=== PATIENT | male | born 1955 | race Caucasian/White ===

== ENCOUNTER 2018-02-14 09:05 | Inpatient (IN) | payer OTHER ==
--- NOTE | 2018-02-14 09:42 | HP ---
CIWA Score Nausea/Vomitin-Int. Nausea w/Dry Heave Muscle Tremors: 4-Moderate,w/Arms Extend Anxiety: 4-Mod. Anxious/Guarded Agitation: 2 Paroxysmal Sweats: No Perspiration Orientation: 0-Oriented Tacttile Disturbances: 2-Mild Itch/Numbness/Burn Auditory Disturbances: 0-None Visual Disturbances: 0-None Headache: 2-Mild CIWA-Ar Total Score: 18 - Admission Criteria OASAS Guidelines: Admission for Medically Managed Detox: Requires at least one of the followin. CIWA greater than 12 2. Seizures within the past 24 hours 3. Delirium tremens within the past 24 hours 4. Hallucinations within the past 24 hours 5. Acute intervention needed for co occurring medical disorder 6. Acute intervention needed for co occurring psychiatric disorder 7. Severe withdrawal that cannot be handled at a lower level of care (continued vomiting, continued diarrhea, abnormal vital signs) requiring intravenous medication and/or fluids 8. Admission ROS S - HPI Allergies/Adverse Reactions: Allergies Allergy/AdvReac Type Severity Reaction Status Date / Time No Known Allergies Allergy Verified 02/14/18 09:35 History of Present Illness: patient here requesting detox from etoh use , reports heavy use x 1 year , 5-10 dronks/day vodka and beer , reports 3 beers/day & 3 beers/ day , symptoms as above if not drinking x 1 week, starts drinking at 8 a.m. in order to stop the tremors , reports confusion , + driving , denies drinking and driving . Denies seizures , blackouts, falls while intoxicated . First age of use : 16. This is his first admission to this facility. Went to [facility] yesterday , referred to this facility. Current HERBIE 0.044 latest use 3 a.m. tobacco ; denies cannabis : occasional use PMHx : r hip djd , lumbar cx frx L1 3 mo ago , reports chronic pain PShx : R THR July 2017 Psych : depression , denies SI / HI Shx : lives w/ daughter, employed as a [employer] . Exam Limitations: Intoxication - Ebola screening Have you traveled outside of the country in the last 21 days: No Have you had contact with anyone from an Ebola affected area: No Do you have a fever: No - Review of Systems Constitutional: See HPI EENT: reports: Other Respiratory: reports: No Symptoms reported Cardiac: reports: No Symptoms Reported GI: reports: Diarrhea, Poor Appetite, Poor Fluid Intake : reports: No Symptoms Reported Musculoskeletal: reports: Back Pain, Joint Pain Integumentary: reports: No Symptoms Reported Neuro: reports: Headache Endocrine: reports: No Symptoms Reported Psychiatric: reports: Orientated x3, Agitated, Anxious Patient History - Smoking Cessation Smoking history: Never smoked - Substances Abused ETOH Frequency: Daily Amount used: 10 drinks vodka and beer Age of first use: 16 Date of Last Use: 02/13/18 Admission Physical Exam [facility] - Physical General Appearance: Yes: Severe Distress, Alcohol on Breath, Tremorous, Anxious HEENTM: Yes: EOMI, Hearing grossly Normal, Normocephalic, Normal Voice Respiratory: Yes: Chest Non-Tender, Lungs Clear, Normal Breath Sounds Neck: Yes: No masses,lesions,Nodules, Trachea in good position Cardiology: Yes: Regular Rhythm, Regular Rate, S1, S2, Tachycardia Abdominal: Yes: Normal Bowel Sounds, Non Tender, Soft Genitourinary: Yes: Within Normal Limits Back: Yes: Muscle Spasm, Vertebral Tenderness Musculoskeletal: Yes: full range of Motion, Gait Steady, Back pain, Joint Stiffness (r hip s/p thr) Extremities: Yes: Normal Capillary Refill, Normal Inspection Neurological: Yes: Fully Oriented, Alert, Motor Strength 5/5 Integumentary: Yes: Normal Color, Dry, Warm - Diagnostic (1) Alcohol dependence Current Visit: Yes Status: Acute Qualifiers: Substance use status: in withdrawal
[2018-02-14] MEDS ORDERED: P-EPHED 60MG/TRIPROLIDI 2.5MG TABLET PO PRN (09:49)
[2018-02-14] MEDS ORDERED: ACETAMINOPHEN 325 MG TABLET (FP) PO PRN (09:49)
[2018-02-14] MEDS ORDERED: MAGNESIUM CITRATE 300 ML BOTTLE PO PRN (09:49)
[2018-02-14] MEDS ORDERED: MAGNESIUM HYDROX 2400MG/30ML ORAL SUSPENSION 30 ML CUP PO PRN (09:49)
[2018-02-14] MEDS ORDERED: LOPERAMIDE HCL 2 MG CAPSULE PO PRN (09:49)
[2018-02-14] MEDS ORDERED: MENTHOL/PHENOL 1 EACH UD MM PRN (09:49)
[2018-02-14] MEDS ORDERED: chlordiazePOXIDE HCL 25 MG CAPSULE PO PRN (09:49)
[2018-02-14] MEDS ORDERED: MAG HYDROX/AL HYDROX/SIMETH 30 ML UNIT-DOSE CUP PO PRN (09:49)
[2018-02-14] MEDS ORDERED: guaiFENesin/D-METHORPHAN HB 10 ML UNIT-DOSE CUPS PO PRN (09:49)
[2018-02-14] MEDS: chlordiazePOXIDE HCL 25 MG CAPSULE PO SCH ×3 (12:32→22:18)
[2018-02-14] MEDS: PRENATAL VITAMINS W/ FOLIC ACID TABLET (FP) PO SCH (12:32)
[2018-02-14] MEDS ORDERED: ONDANSETRON *ODT* 4 MG TABLET SL PRN (13:01)
[2018-02-14] MEDS ORDERED: MELATONIN 5 MG TABLETS PO PRN (22:00)
[2018-02-14] MEDS: THIAMINE HCL 100 MG TABLET (FP) PO SCH (22:18)
[2018-02-15] MEDS: chlordiazePOXIDE HCL 25 MG CAPSULE PO SCH (06:34)
[2018-02-15] MEDS: chlordiazePOXIDE HCL 10 MG CAPSULE PO SCH ×2 (10:23→17:31)
[2018-02-15] MEDS: PRENATAL VITAMINS W/ FOLIC ACID TABLET (FP) PO SCH (10:23)
[2018-02-15 10:36] LABS: HEMATOCRIT 47.7 % (35.4-49); HEMOGLOBIN 16.1 GM/dL (11.7-16.9); MCHC 33.8 g/dl (32.0-35.9); PLATELET COUNT 170 K/MM3 (134-434)
[2018-02-15 10:41] LABS: MCH 31.5 pg (25.7-33.7); MEAN PLT VOLUME 8.8 fl (7.5-11.1); RBC 5.13 M/mm3 (4.00-5.60); RDW 13.6 % (11.9-15.9); WHITE BLOOD COUNT 10.1 K/mm3 (4.0-10.0)
[2018-02-15 10:58] LABS: ALBUMIN 4.1 g/dl (3.4-5.0); ALK PHOS 159 U/L (45-117); ANION GAP 9 MMOL/L (8-16); BILIRUBIN,TOTAL 1.2 mg/dL (0.2-1); BLOOD UREA NITROGEN 15 mg/dL (7-18); CALCIUM 8.6 mg/dL (8.5-10.1); CHLORIDE 97 mmol/L (98-107); CO2 28 mmol/L (21-32); CREATININE 0.7 mg/dL (0.55-1.3); GLUCOSE,RANDOM 97 mg/dL (74-106); POTASSIUM 3.7 mmol/L (3.5-5.1); SGOT/AST 66 U/L (15-37); SGPT/ALT 62 U/L (13-61); SODIUM 133 mmol/L (136-145); TOT PROT 8.2 g/dl (6.4-8.2)
--- NOTE | 2018-02-15 13:26 | PN ---
[facility] CIWA - CIWA Score Nausea/Vomitin-Mild Nausea/No Vomiting Muscle Tremors: 4-Moderate,w/Arms Extend Anxiety: 2 Agitation: 2 Paroxysmal Sweats: 1-Minimal Palms Moist Orientation: 0-Oriented Tacttile Disturbances: 0-None Auditory Disturbances: 0-None Visual Disturbances: 0-None Headache: 0-None Present CIWA-Ar Total Score: 10 [facility] Progress Note (SOAP) Subjective: pt still feels like he is inwithdrawal. On librium detox protocol ay #2 O: Vital Signs - 24 hr 02/14/18 02/14/18 02/14/18 14:39 18:42 22:20 Temperature 98.2 F 99.3 F 98.1 F Pulse Rate 95 H 93 H 74 Respiratory 20 18 18 Rate Blood Pressure 160/98 147/91 139/85 02/15/18 02/15/18 02/15/18 00:30 03:30 07:00 Temperature Pulse Rate 72 Respiratory 18 18 18 Rate Blood Pressure 132/70 02/15/18 09:50 Temperature 97.7 F Pulse Rate 73 Respiratory 18 Rate Blood Pressure 121/69 Laboratory Tests 02/14/18 02/15/18 02/15/18 10:45 05:30 05:30 WBC 10.1 H RBC 5.13 Hgb 16.1 Hct 47.7 MCV 93.0 MCH 31.5 MCHC 33.8 RDW 13.6 Plt Count 170 MPV 8.8 Sodium 133 L Potassium 3.7 Chloride 97 L Carbon Dioxide 28 Anion Gap 9 BUN 15 Creatinine 0.7 Creat Clearance w eGFR > 60 Random Glucose 97 Calcium 8.6 Total Bilirubin 1.2 H AST 66 H ALT 62 H Alkaline Phosphatase 159 H Total Protein 8.2 Albumin 4.1 HIV 1&2 Antibody Screen Negative HIV P24 Antigen Negative a/p: AUD- continue detox protocol- mildly increased liver enzymes, add clonidine and vistaril for withdrawal Sx
[2018-02-15] MEDS: IBUPROFEN 400 MG TABLET (FP) PO PRN (19:22)
[2018-02-16] MEDS: THIAMINE HCL 100 MG TABLET (FP) PO SCH ×2 (00:35→22:05)
[2018-02-16] MEDS: chlordiazePOXIDE HCL 10 MG CAPSULE PO SCH ×2 (00:36→06:26)
[2018-02-16] MEDS: hydrOXYzine PAMOATE 50 MG CAPSULE (FP) PO PRN ×2 (06:28→22:05)
--- NOTE | 2018-02-16 10:42 | PN ---
S CIWA - CIWA Score Nausea/Vomitin-No Nausea/No Vomiting Muscle Tremors: 1-None Visible, but [place] Anxiety: 0-No Anxiety, at Ease Agitation: 0-Normal Activity Paroxysmal Sweats: 1-Minimal Palms Moist Orientation: 0-Oriented Tacttile Disturbances: 0-None Auditory Disturbances: 0-None Visual Disturbances: 0-None Headache: 1-Very Mild CIWA-Ar Total Score: 3 [facility] Progress Note (SOAP) Subjective: feeling better felt tremor less sweat no gi distress patient requests to be discharged to aftercare tomorrow 02/17/18 stated that he is ready for aftercare Objective: 02/16/18 10:41 Vital Signs Temperature 97.7 F 02/16/18 04:00 Pulse Rate 64 02/16/18 04:00 Respiratory Rate 20 02/16/18 04:00 Blood Pressure 102/67 02/16/18 04:00 O2 Sat by Pulse Oximetry (%) Laboratory Last Values WBC 10.1 K/mm3 (4.0-10.0) H 02/15/18 05:30 RBC 5.13 M/mm3 (4.00-5.60) 02/15/18 05:30 Hgb 16.1 GM/dL (11.7-16.9) 02/15/18 05:30 Hct 47.7 % (35.4-49) 02/15/18 05:30 MCV 93.0 fl (80-96) 02/15/18 05:30 MCH 31.5 pg (25.7-33.7) 02/15/18 05:30 MCHC 33.8 g/dl (32.0-35.9) 02/15/18 05:30 RDW 13.6 % (11.9-15.9) 02/15/18 05:30 Plt Count 170 K/MM3 (134-434) 02/15/18 05:30 MPV 8.8 fl (7.5-11.1) 02/15/18 05:30 Sodium 133 mmol/L (136-145) L 02/15/18 05:30 Potassium 3.7 mmol/L (3.5-5.1) 02/15/18 05:30 Chloride 97 mmol/L (98-107) L 02/15/18 05:30 Carbon Dioxide 28 mmol/L (21-32) 02/15/18 05:30 Anion Gap 9 MMOL/L (8-16) 02/15/18 05:30 BUN 15 mg/dL (7-18) 02/15/18 05:30 Creatinine 0.7 mg/dL (0.55-1.3) 02/15/18 05:30 Creat Clearance w eGFR > 60 (>60) 02/15/18 05:30 Random Glucose 97 mg/dL (74-106) 02/15/18 05:30 Calcium 8.6 mg/dL (8.5-10.1) 02/15/18 05:30 Total Bilirubin 1.2 mg/dL (0.2-1) H 02/15/18 05:30 AST 66 U/L (15-37) H 02/15/18 05:30 ALT 62 U/L (13-61) H 02/15/18 05:30 Alkaline Phosphatase 159 U/L (45-117) H 02/15/18 05:30 Total Protein 8.2 g/dl (6.4-8.2) 02/15/18 05:30 Albumin 4.1 g/dl (3.4-5.0) 02/15/18 05:30 HIV 1&2 Antibody Screen Negative 02/14/18 10:45 HIV P24 Antigen Negative 02/14/18 10:45 lab noted Assessment: 02/16/18 10:42 mild alcohol withdrawal sx Plan: medically supervised detox
[2018-02-16] MEDS: chlordiazePOXIDE HCL 25 MG CAPSULE PO SCH ×3 (10:52→22:05)
[2018-02-16] MEDS: PRENATAL VITAMINS W/ FOLIC ACID TABLET (FP) PO SCH (10:52)
[2018-02-16] MEDS: IBUPROFEN 400 MG TABLET (FP) PO PRN (16:33)
[2018-02-16] MEDS: cloNIDine HCL 0.1 MG TABLET PO PRN ×2 (16:33→22:05)
[2018-02-17] MEDS: chlordiazePOXIDE HCL 25 MG CAPSULE PO SCH (06:06)
[2018-02-17] MEDS: hydrOXYzine PAMOATE 50 MG CAPSULE (FP) PO PRN (07:45)
[2018-02-17 09:05] VITALS: BP 117/57; PULSE 71; TEMP 96.8
--- NOTE | 2018-02-17 09:23 | DS ---
[facility] Detox Discharge Summary Admission Date: 02/14/18 Discharge Date: 02/17/18 - History Present History: Alcohol Dependence - Physical Exam Results Vital Signs: Vital Signs Temperature 96.8 F L 02/17/18 09:04 Pulse Rate 71 02/17/18 09:04 Respiratory Rate 18 02/17/18 09:04 Blood Pressure 117/57 L 02/17/18 09:04 O2 Sat by Pulse Oximetry (%) - Treatment Hospital Course: Detox Protocol Followed, Detoxed Safely, Responded well, Discharged Condition Good, Rehab Referral Accepted - Medication Discharge Medications: Ambulatory Orders NK [No Known Home Medication] 02/14/18 - AMA Did Patient Leave Against Medical Advice: No (going home)
[2018-02-17] MEDS ORDERED: chlordiazePOXIDE HCL 10 MG CAPSULE PO SCH (11:00)
== END 2018-02-17 09:04 | disposition home or self-care (01) | DRG 775 ==
LOC: YASAS 09:05 → Y6N 11:19
PROC: HZ2ZZZZ Detoxification Services for Substance Abuse Treatment (ICD-10-PCS; principal; 2018-02-14)
DX: F10.230 Alcohol dependence with withdrawal, uncomplicated (principal)
CPT/HCPCS: 36415; 80053; 85027; 86593; 87389; J0735

== ENCOUNTER 2018-08-14 08:17 | Inpatient (IN) | payer OTHER ==
[2018-08-14 09:14] VITALS: BMI 24.3
--- NOTE | 2018-08-14 10:06 | HP ---
CIWA Score Nausea/Vomitin Muscle Tremors: 2 Anxiety: 2 Agitation: 2 Paroxysmal Sweats: 1-Minimal Palms Moist Orientation: 0-Oriented Tacttile Disturbances: 1-Very Mild Itch/Numbness Auditory Disturbances: 1-Very Mild Visual Disturbances: 0-None Headache: 2-Mild CIWA-Ar Total Score: 13 - Admission Criteria OASAS Guidelines: Admission for Medically Managed Detox: Requires at least one of the followin. CIWA greater than 12 2. Seizures within the past 24 hours 3. Delirium tremens within the past 24 hours 4. Hallucinations within the past 24 hours 5. Acute intervention needed for co occurring medical disorder 6. Acute intervention needed for co occurring psychiatric disorder 7. Severe withdrawal that cannot be handled at a lower level of care (continued vomiting, continued diarrhea, abnormal vital signs) requiring intravenous medication and/or fluids 8. Admission ROS S - HPI Chief Complaint: i need help to stop drinking alcohol Allergies/Adverse Reactions: Allergies Allergy/AdvReac Type Severity Reaction Status Date / Time No Known Allergies Allergy Verified 08/14/18 09:14 History of Present Illness: this 62 years old male with alcohol dependence,withdrawal symptom,seeking detox, multiple admissions in detox,last 02/14/18 to 02/17/18 but keep relapsing anxiety and depression syncope alcohol related history of right lulú replacement in 2018 fx of l1 post trauama in 03/22 plan of out patient program longest peroid of sobriety 2 years Exam Limitations: No Limitations - Ebola screening Have you traveled outside of the country in the last 21 days: No (N) Have you had contact with anyone from an Ebola affected area: No Do you have a fever: No - Review of Systems Constitutional: Loss of Appetite, Malaise, Night Sweats, Changes in sleep, Weakness EENT: reports: Nose Congestion Respiratory: reports: No Symptoms reported Cardiac: reports: No Symptoms Reported GI: reports: Diarrhea, Nausea, Poor Appetite, Abdominal cramping : reports: No Symptoms Reported Musculoskeletal: reports: Back Pain, Muscle Pain Integumentary: reports: Dryness, Other (s/p right hip replacement) Neuro: reports: Headache, Tremors Endocrine: reports: No Symptoms Reported Hematology: reports: No Symptoms Reported Psychiatric: reports: No Sypmtoms Reported, Judgement Intact, Mood/Affect Appropiate, Orientated x3, Anxious, Depressed Other Systems: Reviewed and Negative Patient History - Patient Medical History Hx Anemia: No Hx Asthma: No Hx Chronic Obstructive Pulmonary Disease (COPD): No Hx Cancer: No Hx Cardiac Disorders: No Hx Hypertension: No Hx Hypercholesterolemia: No Hx Pacemaker: No HX Cerebrovascular Accident: No Hx Seizures: No Hx Dementia: No Hx Diabetes: No Hx Gastrointestinal Disorders: No Hx Liver Disease: No Hx Genitourinary Disorders: No Hx Sexually Transmitted Disorders: No Hx Renal Disease (ESRD): No Hx Thyroid Disease: No Hx Human Immunodeficiency Virus (HIV): No (last 2017 negative) Hx Hepatitis C: No Hx Depression: Yes (anxiety) Hx Suicide Attempt: No Hx Bipolar Disorder: No Hx Schizophrenia: No Other Medical History: no suicidal,no homicidal,s/p right hip replacement,fx of l1 - Patient Surgical History Past Surgical History: Yes Hx Neurologic Surgery: No Hx Cataract Extraction: No Hx Cardiac Surgery: No Hx Lung Surgery: No Hx Breast Surgery: No Hx Breast Biopsy: No Hx Abdominal Surgery: No Hx Appendectomy: No Hx Cholecystectomy: No Hx Genitourinary Surgery: No Hx Section: No Hx Orthopedic Surgery: Yes ([facility] hip replacement July 2017) Anesthesia Reaction: No - PPD History Previous Implant?: Yes Implanted On Prior [facility] Admission?: Yes Date: 02/16/18 Results: 0 mm PPD to be Administered?: No - Smoking Cessation Smoking history: Never smoked - Substance & Tx. History Hx Alcohol Use: Yes Hx Substance Use: No Substance Use Type: Alcohol Hx Substance Use Treatment: Yes ([facility] 02/14/18 to 02/17/18) - Substances abused Alcohol Substance route: Oral Frequency: Daily Amount used: 2 pints of vodka/2 of 12 ozs of beer Age of first use: 16 Date of last use: 08/13/18 Family Disease History - Family Disease History Family Disease History: Other: Father (alcohol,) Admission Physical Exam [facility] - Vital Signs Vital Signs: Vital Signs - 24 hr 08/14/18 08/14/18 09:00 09:35 Temperature 97.2 F L 97.2 F L Pulse Rate 82 82 Respiratory 18 18 Rate Blood Pressure 180/103 H 180/103 H - Physical General Appearance: Yes: Moderate Distress, Tremorous, Irritable, Sweating, Anxious HEENTM: Yes: Normal ENT Inspection, VI, Pharynx Normal Respiratory: Yes: Lungs Clear, Normal Breath Sounds, No Respiratory Distress Neck: Yes: Within Normal Limits, Supple, Trachea in good position Breast: Yes: Within Normal Limits Cardiology: Yes: Regular Rhythm, Regular Rate, S1, S2, Bradycardia Abdominal: Yes: Within Normal Limits, Normal Bowel Sounds, Non Tender, Flat, Soft Genitourinary: Yes: Within Normal Limits Back: Yes: Muscle Spasm, Other (od fx of li) Musculoskeletal: Yes: Back pain, Muscle Pain Extremities: Yes: Tremors, Other (history of right hip replacement) 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, Fully Oriented, Alert, Motor Strength 5/5 Integumentary: Yes: Dry Lymphatic: Yes: Within Normal Limits - Diagnostic (1) Alcohol dependence with uncomplicated withdrawal Current Visit: Yes Status: Acute (2) Syncope Current Visit: Yes Status: Acute (3) Anxiety and depression Current Visit: Yes Status: Acute (4) History of right hip replacement Current Visit: Yes Status: Acute (5) Fracture of L1 vertebra Current Visit: Yes Status: Acute Cleared for Admission S - Detox or Rehab [facility] Level of Care: Medically Managed Detox Regimen/Protocol: Librium Breathalyzer - Breathalyzer Breathalyzer: 0 Urine Drug Screen - Test Device Lot number: [id number] Expiration date: 05/01/20 - Control Is test valid?: Yes - Results Drug screen NEGATIVE: No Urine drug screen results: BZO-Benzodiazepines Inpatient Rehab Admission - Rehab Decision to Admit Inpatient rehab admission?: No
[2018-08-14] MEDS ORDERED: BISMUTH SUBSALICYLATE 262 MG/15 ML BTL PO PRN (10:16)
[2018-08-14] MEDS ORDERED: MAGNESIUM HYDROX 2400MG/30ML ORAL SUSPENSION 30 ML CUP PO PRN (10:16)
[2018-08-14] MEDS ORDERED: MENTHOL/PHENOL 1 EACH UD MM PRN (10:16)
[2018-08-14] MEDS ORDERED: MAGNESIUM CITRATE 300 ML BOTTLE PO PRN (10:16)
[2018-08-14] MEDS ORDERED: ACETAMINOPHEN 325 MG TABLET (FP) PO PRN ×2 (10:16)
[2018-08-14] MEDS ORDERED: IBUPROFEN 400 MG TABLET (FP) PO PRN (10:16)
[2018-08-14] MEDS ORDERED: MAG HYDROX/AL HYDROX/SIMETH 30 ML UNIT-DOSE CUP PO PRN (10:16)
[2018-08-14] MEDS: chlordiazePOXIDE HCL 25 MG CAPSULE PO SCH ×3 (11:38→22:02)
[2018-08-14] MEDS: GABAPENTIN 100 MG CAPSULE (FP) PO SCH ×2 (13:06→22:02)
[2018-08-14 14:22] LABS: ALBUMIN 4.2 g/dl (3.4-5.0); BILIRUBIN,TOTAL 0.7 mg/dL (0.2-1); BLOOD UREA NITROGEN 8.1 mg/dL (7-18); CALCIUM 9.1 mg/dL (8.5-10.1); CREATININE 0.8 mg/dL (0.55-1.3); POTASSIUM 3.7 mmol/L (3.5-5.1)
[2018-08-14 14:44] LABS: HEMATOCRIT 42.8 % (35.4-49); MCH 32.5 pg (25.7-33.7); MCHC 35.1 g/dl (32.0-35.9); MEAN CELL VOLUME 92.8 fl (80-96); MEAN PLT VOLUME 7.8 fl (7.5-11.1); RBC 4.61 M/mm3 (4.00-5.60); RDW 13.7 % (11.9-15.9); WHITE BLOOD COUNT 9.6 K/mm3 (4.0-10.0)
[2018-08-14 15:07] LABS: PLATELET COUNT 150 K/MM3 (134-434)
[2018-08-14] MEDS: chlordiazePOXIDE HCL 25 MG CAPSULE PO PRN (15:39)
[2018-08-14] MEDS: METHOCARBAMOL 500 MG TABLET PO PRN (15:39)
[2018-08-14] MEDS: hydrOXYzine PAMOATE 25 MG CAPSULE (FP) PO PRN (17:13)
[2018-08-14 18:09] LABS: PH,URINE 7.5 (5.0-8.0); URINE APPEARANCE CLEAR; URINE BILIRUBIN NEGATIVE (NEGATIVE); URINE COLOR YELLOW; URINE GLUCOSE (UA) NEGATIVE (NEGATIVE); URINE KETONE NEGATIVE (NEGATIVE); URINE LEUK ESTERASE NEGATIVE (NEGATIVE); URINE NITRITE NEGATIVE (NEGATIVE); URINE PROTEIN TRACE (NEGATIVE)
[2018-08-14] MEDS: THIAMINE HCL 100 MG TABLET (FP) PO SCH (22:02)
[2018-08-14] MEDS: MELATONIN 5 MG TABLETS PO PRN (22:03)
[2018-08-15] MEDS: GABAPENTIN 100 MG CAPSULE (FP) PO SCH ×3 (05:35→22:16)
[2018-08-15] MEDS: chlordiazePOXIDE HCL 25 MG CAPSULE PO SCH ×4 (05:35→22:16)
--- NOTE | 2018-08-15 10:04 | CONSULT ---
[facility] Psychiatric Consult - Data Date of interview: 08/15/18 Admission source: [facility] Identifying data: First admission to [facility] for this 62 y/o male self-referred for detoxification (alcohol). examined at [address] [place] [address]. Patient is , a father of two, domiciled, unemployed and supported on occasional jobs. Substance Abuse History: Discussed in this session. Patient confirms a heavy history of alcohol abuse. Details in current [facility] report as folows : Smoking history: Never smoked. Substance & Tx. History. Hx Alcohol Use: Yes. Hx Substance Use: No. Substance Use Type: Alcohol. Hx Substance Use Treatment: Yes ([facility] 02/14/18 to 02/17/18). - Substances abused. Alcohol. Substance route: Oral. Frequency: Daily. Amount used: 2 pints of vodka/2 of 12 ozs of beer. Age of first use: 16. Date of last use: 08/13/18 Medical History: Remarkable for chronic back pain, right hip replacement. Psychiatric History: No history of psychiatric hospitalizations. Patient reports current treatment with an antidepressant (paxil 40 mg/day), prescribed by his primary care physician about a year ago. Sporadically adherent to that medication. No prior contact with a mental healthcare provider. History of escalating alcohol consumption. Mr Barone denies history of suicide attempts. Physical/Sexual Abuse/Trauma History: Stressors : unemployment, chronic physical disabilities, financial difficulties, strained relations with daughter. Additional Comment: Urine drug screen results: BZO-Benzodiazepines. Noted. Mental Status Exam - Mental Status Exam Alert and Oriented to: Time, Place, Person Cognitive Function: Good Patient Appearance: Unkempt, Disheveled Mood: Nervous, Withdrawn, Anxious Affect: Mood Congruent, Constricted Patient Behavior: Fatigued, Appropriate, Cooperative (well-mannered) Speech Pattern: Clear, Appropriate Voice Loudness: Normal Thought Process: Goal Oriented Thought Disorder: Not Present Hallucinations: Denies Suicidal Ideation: Denies Homicidal Ideation: Denies Insight/Judgement: Fair Sleep: Well Appetite: Good Muscle strength/Tone: Normal Gait/Station: Normal Psychiatric Findings - Problem List ([place] 1, 2,3) (1) Alcohol dependence with uncomplicated withdrawal Current Visit: Yes Status: Acute (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 - Initial Treatment Plan Initial Treatment Plan: Psychoeducation. Sleep hygiene. Detoxification. Patient is made aware of MAT interventions for relapse prevention (naltrexone, acamprosate, psychotherapy). AA meetings. Support and empathy. Resume paxil 40 mg po daily. Side effects/benefits discussed with patient. Mr Barone is in agreement with this plan of care. Verbal consent given to MD. Turner.
[2018-08-15] MEDS: PRENATAL VITAMINS W/ FOLIC ACID TABLET (FP) PO SCH (10:32)
[2018-08-15] MEDS: PARoxetine HCL 20 MG TABLET PO SCH (10:32)
[2018-08-15] MEDS: chlordiazePOXIDE HCL 25 MG CAPSULE PO PRN (13:53)
--- NOTE | 2018-08-15 14:11 | PN ---
[facility] CIWA - CIWA Score Nausea/Vomitin-Mild Nausea/No Vomiting Muscle Tremors: 2 Anxiety: 2 Agitation: 2 Paroxysmal Sweats: 2 Orientation: 2-Disoriented Date<2 days Tacttile Disturbances: 2-Mild Itch/Numbness/Burn Auditory Disturbances: 0-None Visual Disturbances: 0-None Headache: 0-None Present CIWA-Ar Total Score: 13 [facility] Progress Note (SOAP) Subjective: interrupted sleep, sweats ,cold, diarrhea, lbp Objective: 08/15/18 14:12 Vital Signs Temperature 97.0 F L 08/15/18 14:05 Pulse Rate 71 08/15/18 14:05 Respiratory Rate 18 08/15/18 14:05 Blood Pressure 159/94 08/15/18 14:05 O2 Sat by Pulse Oximetry (%) Laboratory Tests 08/14/18 08/14/18 08/14/18 11:20 11:20 11:20 WBC 9.6 RBC 4.61 Hgb 15.0 Hct 42.8 MCV 92.8 MCH 32.5 MCHC 35.1 RDW 13.7 Plt Count 150 MPV 7.8 D Sodium 139 Potassium 3.7 Chloride 103 Carbon Dioxide 30 Anion Gap 6 L BUN 8.1 Creatinine 0.8 Est GFR (CKD-EPI)AfAm 109.42 Est GFR (CKD-EPI)NonAf 94.41 Random Glucose 106 Calcium 9.1 Total Bilirubin 0.7 AST 34 ALT 32 Alkaline Phosphatase 154 H Total Protein 8.0 Albumin 4.2 Urine Color Urine Appearance Urine pH Ur Specific [place] Urine Protein Urine Glucose (UA) Urine Ketones Urine Blood Urine Nitrite Urine Bilirubin Urine Urobilinogen Ur Leukocyte Esterase RPR Titer Nonreactive 08/14/18 13:00 WBC RBC Hgb Hct MCV MCH MCHC RDW Plt Count MPV Sodium Potassium Chloride Carbon Dioxide Anion Gap BUN Creatinine Est GFR (CKD-EPI)AfAm Est GFR (CKD-EPI)NonAf Random Glucose Calcium Total Bilirubin AST ALT Alkaline Phosphatase Total Protein Albumin Urine Color Yellow Urine Appearance Clear Urine pH 7.5 Ur Specific [place] 1.018 Urine Protein Trace Urine Glucose (UA) Negative Urine Ketones Negative Urine Blood Negative Urine Nitrite Negative Urine Bilirubin Negative Urine Urobilinogen 1.0 Ur Leukocyte Esterase Negative RPR Titer pt aox3 lying in bed in nad Assessment: 08/15/18 14:14 withdrawal sx's lbp Plan: cont. detox increase fluids imodium prn
[2018-08-15] MEDS: MELATONIN 5 MG TABLETS PO PRN (22:16)
[2018-08-15] MEDS: THIAMINE HCL 100 MG TABLET (FP) PO SCH (22:16)
[2018-08-15] MEDS: METHOCARBAMOL 500 MG TABLET PO PRN (22:17)
[2018-08-16] MEDS: chlordiazePOXIDE HCL 25 MG CAPSULE PO SCH (05:43)
[2018-08-16] MEDS: GABAPENTIN 100 MG CAPSULE (FP) PO SCH ×3 (05:43→22:29)
[2018-08-16] MEDS ORDERED: chlordiazePOXIDE HCL 10 MG CAPSULE PO PRN (11:00)
[2018-08-16] MEDS: PRENATAL VITAMINS W/ FOLIC ACID TABLET (FP) PO SCH (11:06)
[2018-08-16] MEDS: chlordiazePOXIDE HCL 10 MG CAPSULE PO SCH ×3 (11:07→22:28)
[2018-08-16] MEDS: PARoxetine HCL 20 MG TABLET PO SCH (11:07)
--- NOTE | 2018-08-16 12:20 | PN ---
[facility] CIWA - CIWA Score Nausea/Vomitin-No Nausea/No Vomiting Muscle Tremors: 2 Anxiety: 2 Agitation: 2 Paroxysmal Sweats: 3 Orientation: 0-Oriented Tacttile Disturbances: 0-None Auditory Disturbances: 0-None Visual Disturbances: 0-None Headache: 1-Very Mild CIWA-Ar Total Score: 10 S Progress Note (SOAP) Subjective: c/o headache, sweats, anxiety, and shakes. Objective: 08/16/18 12:19 Vital Signs 08/16/18 08/16/18 06:19 09:38 Temperature 96.6 F L 97.4 F L Pulse Rate 70 69 Respiratory 18 18 Rate Blood Pressure 143/87 127/81 Laboratory Last Values WBC 9.6 K/mm3 (4.0-10.0) 08/14/18 11:20 RBC 4.61 M/mm3 (4.00-5.60) 08/14/18 11:20 Hgb 15.0 GM/dL (11.7-16.9) 08/14/18 11:20 Hct 42.8 % (35.4-49) 08/14/18 11:20 MCV 92.8 fl (80-96) 08/14/18 11:20 MCH 32.5 pg (25.7-33.7) 08/14/18 11:20 MCHC 35.1 g/dl (32.0-35.9) 08/14/18 11:20 RDW 13.7 % (11.9-15.9) 08/14/18 11:20 Plt Count 150 K/MM3 (134-434) 08/14/18 11:20 MPV 7.8 fl (7.5-11.1) D 08/14/18 11:20 Sodium 139 mmol/L (136-145) 08/14/18 11:20 Potassium 3.7 mmol/L (3.5-5.1) 08/14/18 11:20 Chloride 103 mmol/L (98-107) 08/14/18 11:20 Carbon Dioxide 30 mmol/L (21-32) 08/14/18 11:20 Anion Gap 6 MMOL/L (8-16) L 08/14/18 11:20 BUN 8.1 mg/dL (7-18) 08/14/18 11:20 Creatinine 0.8 mg/dL (0.55-1.3) 08/14/18 11:20 Est GFR (CKD-EPI)AfAm 109.42 08/14/18 11:20 Est GFR (CKD-EPI)NonAf 94.41 08/14/18 11:20 Random Glucose 106 mg/dL (74-106) 08/14/18 11:20 Calcium 9.1 mg/dL (8.5-10.1) 08/14/18 11:20 Total Bilirubin 0.7 mg/dL (0.2-1) 08/14/18 11:20 AST 34 U/L (15-37) 08/14/18 11:20 ALT 32 U/L (13-61) 08/14/18 11:20 Alkaline Phosphatase 154 U/L (45-117) H 08/14/18 11:20 Total Protein 8.0 g/dl (6.4-8.2) 08/14/18 11:20 Albumin 4.2 g/dl (3.4-5.0) 08/14/18 11:20 Urine Color Yellow 08/14/18 13:00 Urine Appearance Clear 08/14/18 13:00 Urine pH 7.5 (5.0-8.0) 08/14/18 13:00 Ur Specific [place] 1.018 (1.010-1.035) 08/14/18 13:00 Urine Protein Trace (NEGATIVE) 08/14/18 13:00 Urine Glucose (UA) Negative (NEGATIVE) 08/14/18 13:00 Urine Ketones Negative (NEGATIVE) 08/14/18 13:00 Urine Blood Negative (NEGATIVE) 08/14/18 13:00 Urine Nitrite Negative (NEGATIVE) 08/14/18 13:00 Urine Bilirubin Negative (NEGATIVE) 08/14/18 13:00 Urine Urobilinogen 1.0 mg/dL (0.2-1.0) 08/14/18 13:00 Ur Leukocyte Esterase Negative (NEGATIVE) 08/14/18 13:00 RPR Titer Nonreactive (NONREACTIVE) 08/14/18 11:20 Labs noted. Assessment: 08/16/18 12:20 AOX3, in no acute distress Full ROM, ambulating in the unit. Withdrawal symptoms. Plan: continue detox.
[2018-08-16] MEDS: METHOCARBAMOL 500 MG TABLET PO PRN (17:26)
[2018-08-16] MEDS: THIAMINE HCL 100 MG TABLET (FP) PO SCH (22:28)
[2018-08-16] MEDS: MELATONIN 5 MG TABLETS PO PRN (22:28)
[2018-08-17] MEDS: chlordiazePOXIDE HCL 10 MG CAPSULE PO SCH ×3 (05:14→22:16)
[2018-08-17] MEDS: GABAPENTIN 100 MG CAPSULE (FP) PO SCH ×3 (05:14→22:16)
[2018-08-17] MEDS: PARoxetine HCL 20 MG TABLET PO SCH (10:09)
[2018-08-17] MEDS: PRENATAL VITAMINS W/ FOLIC ACID TABLET (FP) PO SCH (10:09)
--- NOTE | 2018-08-17 12:43 | PN ---
S CIWA - CIWA Score Nausea/Vomitin Muscle Tremors: 2 Anxiety: 3 Agitation: 1-Slight > Activity Paroxysmal Sweats: No Perspiration Orientation: 0-Oriented Tacttile Disturbances: 0-None Auditory Disturbances: 0-None Visual Disturbances: 0-None Headache: 0-None Present CIWA-Ar Total Score: 8 [facility] Progress Note (SOAP) Subjective: CO GI UPSET, ANXIOUS, GNERALIZED DISCOMFORT Objective: 08/17/18 12:42 Vital Signs - 24 hr 08/16/18 08/16/18 08/16/18 13:55 18:04 21:49 Temperature 97.1 F L 97.5 F L 98.2 F Pulse Rate 80 74 69 Respiratory 18 18 19 Rate Blood Pressure 148/95 149/87 146/86 08/17/18 08/17/18 08/17/18 00:30 03:30 06:43 Temperature 96.9 F L Pulse Rate 59 L Respiratory 18 18 18 Rate Blood Pressure 115/62 Laboratory Tests 08/14/18 08/14/18 08/14/18 11:20 11:20 11:20 WBC 9.6 RBC 4.61 Hgb 15.0 Hct 42.8 MCV 92.8 MCH 32.5 MCHC 35.1 RDW 13.7 Plt Count 150 MPV 7.8 D Sodium 139 Potassium 3.7 Chloride 103 Carbon Dioxide 30 Anion Gap 6 L BUN 8.1 Creatinine 0.8 Est GFR (CKD-EPI)AfAm 109.42 Est GFR (CKD-EPI)NonAf 94.41 Random Glucose 106 Calcium 9.1 Total Bilirubin 0.7 AST 34 ALT 32 Alkaline Phosphatase 154 H Total Protein 8.0 Albumin 4.2 Urine Color Urine Appearance Urine pH Ur Specific [place] Urine Protein Urine Glucose (UA) Urine Ketones Urine Blood Urine Nitrite Urine Bilirubin Urine Urobilinogen Ur Leukocyte Esterase RPR Titer Nonreactive 08/14/18 13:00 WBC RBC Hgb Hct MCV MCH MCHC RDW Plt Count MPV Sodium Potassium Chloride Carbon Dioxide Anion Gap BUN Creatinine Est GFR (CKD-EPI)AfAm Est GFR (CKD-EPI)NonAf Random Glucose Calcium Total Bilirubin AST ALT Alkaline Phosphatase Total Protein Albumin Urine Color Yellow Urine Appearance Clear Urine pH 7.5 Ur Specific [place] 1.018 Urine Protein Trace Urine Glucose (UA) Negative Urine Ketones Negative Urine Blood Negative Urine Nitrite Negative Urine Bilirubin Negative Urine Urobilinogen 1.0 Ur Leukocyte Esterase Negative RPR Titer ALERT ORIENTED AMBULATING Assessment: 08/17/18 12:42 ETOH DEP WITHDRAWAL Plan: CONT DETOX PROTOCOL ANTICIPATE AM DC EMPHASIZED HYDRATION
--- NOTE | 2018-08-17 16:54 | EKG ---
Test Reason : Blood Pressure : / mmHG Vent. Rate : 068 BPM Atrial Rate : 068 BPM P-R Int : 128 ms QRS Dur : 084 ms QT Int : 416 ms P-R-T Axes : 068 064 055 degrees QTc Int : 442 ms NORMAL SINUS RHYTHM POSSIBLE LEFT ATRIAL ENLARGEMENT BORDERLINE ECG NO PREVIOUS ECGS AVAILABLE Confirmed by MD YASMANY, YAMIL ([id number]) on 08/17/2018 4:54:24 PM Referred By: Confirmed By:YAMIL JADE MD
[2018-08-17] MEDS: hydrOXYzine PAMOATE 25 MG CAPSULE (FP) PO PRN (17:41)
[2018-08-17] MEDS: THIAMINE HCL 100 MG TABLET (FP) PO SCH (22:16)
[2018-08-17] MEDS: MELATONIN 5 MG TABLETS PO PRN (22:16)
[2018-08-18 06:23] VITALS: BP 126/77; PULSE 60; TEMP 97.5
[2018-08-18] MEDS: GABAPENTIN 100 MG CAPSULE (FP) PO SCH (06:34)
--- NOTE | 2018-08-18 17:10 | DS ---
[facility] Detox Discharge Summary Admission Date: 08/14/18 Discharge Date: 08/18/18 - History Present History: Alcohol Dependence Additional Comments: PATIENT ELECTING TO GO HOME. PATIENT ADVISED TO CONSIDER LOCAL 12-STEP / AA OUTPATIENT SUPPORT GROUP PROGRAMS FOR AFTERCARE. PATIENT VERBALIZED UNDERSTANDING OF RECOMMENDATION. PATIENT WAS DISCHARGED FROM DETOX UNIT IN STABLE MEDICAL CONDITION. Pertinent Past History: History Of Syncope (Alcohol-Related), Anxiety, Depressive Disorder, History Of Right Hip Replacement, History Of Fracture Of L1 Vertebra. - Physical Exam Results Vital Signs: Vital Signs Temperature 97.5 F L 08/18/18 06:21 Pulse Rate 60 08/18/18 06:21 Respiratory Rate 18 08/18/18 06:30 Blood Pressure 126/77 08/18/18 06:21 O2 Sat by Pulse Oximetry (%) Pertinent Admission Physical Exam Findings: WITHDRAWAL SYMPTOMS. Laboratory Tests 08/14/18 08/14/18 08/14/18 11:20 11:20 11:20 WBC 9.6 RBC 4.61 Hgb 15.0 Hct 42.8 MCV 92.8 MCH 32.5 MCHC 35.1 RDW 13.7 Plt Count 150 MPV 7.8 D Sodium 139 Potassium 3.7 Chloride 103 Carbon Dioxide 30 Anion Gap 6 L BUN 8.1 Creatinine 0.8 Est GFR (CKD-EPI)AfAm 109.42 Est GFR (CKD-EPI)NonAf 94.41 Random Glucose 106 Calcium 9.1 Total Bilirubin 0.7 AST 34 ALT 32 Alkaline Phosphatase 154 H Total Protein 8.0 Albumin 4.2 Urine Color Urine Appearance Urine pH Ur Specific Gould Urine Protein Urine Glucose (UA) Urine Ketones Urine Blood Urine Nitrite Urine Bilirubin Urine Urobilinogen Ur Leukocyte Esterase RPR Titer Nonreactive 08/14/18 13:00 WBC RBC Hgb Hct MCV MCH MCHC RDW Plt Count MPV Sodium Potassium Chloride Carbon Dioxide Anion Gap BUN Creatinine Est GFR (CKD-EPI)AfAm Est GFR (CKD-EPI)NonAf Random Glucose Calcium Total Bilirubin AST ALT Alkaline Phosphatase Total Protein Albumin Urine Color Yellow Urine Appearance Clear Urine pH 7.5 Ur Specific Gould 1.018 Urine Protein Trace Urine Glucose (UA) Negative Urine Ketones Negative Urine Blood Negative Urine Nitrite Negative Urine Bilirubin Negative Urine Urobilinogen 1.0 Ur Leukocyte Esterase Negative RPR Titer LABS NOTED. - Treatment Hospital Course: Detox Protocol Followed, Detoxed Safely, Responded well, Discharged Condition Good Patient has Accepted a Rehab Referral to: PT. ADVISED TO CONSIDER LOCAL 12-STEP/ AA OUTPATIENT SUPPORT GROUP PROGRAM. - Medication Discharge Medications: Ambulatory Orders Gabapentin [Neurontin] 100 mg PO TID 08/14/18 Paroxetine HCl [Paxil] 40 mg PO DAILY 08/14/18 - Diagnosis (1) Alcohol dependence with uncomplicated withdrawal Status: Acute (2) Anxiety and depression Status: Acute (3) Fracture of L1 vertebra Status: Acute Qualifiers: Encounter type: sequela Fracture type: closed Fracture morphology: unspecified fracture morphology Qualified Code(s): S32.019S - Unspecified fracture of first lumbar vertebra, sequela (4) History of right hip replacement Status: Acute (5) Syncope Status: Acute Qualifiers: Syncope type: unspecified Qualified Code(s): R55 - Syncope and collapse (6) Alcohol-induced mood disorder Status: Chronic (7) Depressive disorder Status: Chronic - AMA Did Patient Leave Against Medical Advice: No
== END 2018-08-18 09:50 | disposition home or self-care (01) | DRG 775 ==
LOC: YASAS 08:17 → Y3N 10:16
PROVIDERS: ADMIT Surgery; ATTEND Surgery
PROC: HZ2ZZZZ Detoxification Services for Substance Abuse Treatment (ICD-10-PCS; principal; 2018-08-14)
DX: F10.230 Alcohol dependence with withdrawal, uncomplicated (principal); F10.24 Alcohol dependence with alcohol-induced mood disorder; F41.9 Anxiety disorder, unspecified; F31.9 Bipolar disorder, unspecified; F33.9 Major depressive disorder, recurrent, unspecified; R55 Syncope and collapse; Z96.641 Presence of right artificial hip joint; Z87.81 Personal history of (healed) traumatic fracture
CPT/HCPCS: 36415; 80053; 81003; 85027; 86593; 93005; 93010

== ENCOUNTER 2024-12-07 06:36 | Inpatient (IN) | payer OTHER ==
[2024-12-07 07:04] VITALS: BMI 26.4
[2024-12-07] MEDS ORDERED: ACETAMINOPHEN 325 MG TABLET (FP) PO PRN (08:18)
[2024-12-07] MEDS ORDERED: MAG HYDROX/AL HYDROX/SIMETH 30 ML UNIT-DOSE CUP PO PRN (08:18)
[2024-12-07] MEDS ORDERED: MAGNESIUM HYDROX 2400MG/30ML ORAL SUSPENSION 30 ML CUP PO PRN (08:18)
[2024-12-07] MEDS ORDERED: hydrOXYzine PAMOATE 25 MG CAPSULE (FP) PO PRN (08:18)
[2024-12-07] MEDS ORDERED: BENZOCAINE/MENTHOL (CHLORASEPTIC ) LOZENGE MM PRN (08:18)
[2024-12-07] MEDS ORDERED: DICYCLOMINE HCL 10 MG CAPSULE PO PRN (08:18)
[2024-12-07] MEDS ORDERED: LOPERAMIDE HCL 2 MG CAPSULE PO PRN (08:18)
[2024-12-07] MEDS ORDERED: ONDANSETRON *ODT* 4 MG TABLET SL PRN (08:18)
[2024-12-07] MEDS ORDERED: POLYETHYLENE GLYCOL (HEALTHYLAX) 3350 17 GM PACKET PO PRN (08:18)
[2024-12-07] MEDS ORDERED: IBUPROFEN 400 MG TABLET (FP) PO PRN (08:18)
[2024-12-07] MEDS ORDERED: BISMUTH SUBSALICYLATE 524 MG/30 ML PO PRN (08:18)
[2024-12-07] MEDS ORDERED: NALOXONE (NARCAN) HCL 4 MG/0.1 ML SPRAY NS PRN (08:18)
[2024-12-07] MEDS ORDERED: BENZONATATE 200 MG CAPSULE PO PRN (08:18)
[2024-12-07] MEDS ORDERED: guaiFENesin 600 MG TABLET.ER (FP) PO PRN (08:18)
[2024-12-07] MEDS: HYDROCHLOROTHIAZIDE 12.5 MG CAPSULE (FP) PO SCH (09:20)
[2024-12-07] MEDS: PRENATAL VITAMINS W/ FOLIC ACID TABLET (FP) PO SCH (09:21)
[2024-12-07] MEDS: NALTREXONE HCL 50 MG TABLET PO ONE (09:21)
[2024-12-07] MEDS: FINASTERIDE 5 MG TABLET (FP) PO SCH (10:15)
[2024-12-07] MEDS: GABAPENTIN 300 MG CAPSULE PO SCH (14:10)
[2024-12-07] MEDS: ATORVASTATIN CA 20 MG TABLET (FP) PO SCH (22:37)
[2024-12-07] MEDS: levETIRAcetam 500 MG TABLET (FP) PO SCH (22:37)
[2024-12-07] MEDS: MELATONIN 5 MG TABLETS PO SCH (22:37)
[2024-12-07] MEDS: THIAMINE 100 MG TABLET PO SCH (22:37)
[2024-12-08] MEDS: NALTREXONE HCL 50 MG TABLET PO SCH (10:15)
[2024-12-08 11:37] LABS: IMMATURE PLATELET FRACTION # 3.30 x10^3/uL; MCHC 32.6 g/dl (32.3-36.5); MEAN CELL VOLUME 98.9 fl (79.0-92.2); RDW 13.4 % (12.2-16.4)
[2024-12-08 11:56] LABS: GLUCOSE,RANDOM 106.0 mg/dL (74-106); TOT PROT 8.0 g/dl (6.4-8.2)
[2024-12-08 11:57] LABS: CO2 24.0 mmol/L (21-32)
[2024-12-08 11:59] LABS: ALK PHOS 150.0 U/L (40-150)
[2024-12-08 12:02] LABS: CREATININE 0.58 mg/dL (0.55-1.3); SGOT/AST 42.0 U/L (5-34); SGPT/ALT 26.0 U/L (0-55)
[2024-12-08] MEDS: TAMSULOSIN HCL 0.4 MG CAP PO SCH (13:00)
[2024-12-09] MEDS: IBUPROFEN 600 MG TABLET (FP) PO PRN (05:13)
[2024-12-09] MEDS: METHOCARBAMOL 500 MG TABLET PO PRN (05:13)
[2024-12-10 09:05] VITALS: BP 156/71; PULSE 64; RESP 18; TEMP 96.8
[2024-12-10] MEDS ORDERED: amLODIPine BESYLATE 5 MG TABLET (FP) PO SCH (10:00)
[2024-12-11] MEDS ORDERED: NALTREXONE MICROSPHERES (VIVITROL) 380 MG DISP.SYRIN IM ONE (12:50)
== END 2024-12-10 11:19 | disposition home or self-care (01) | DRG 897 ==
LOC: SUATTDRO 06:36 → YASAS 06:36 → Y3N 09:02
PROVIDERS: ADMIT Family Medicine; ATTEND Counselor Addiction (Substance Use Disorder)
PROC: HZ2ZZZZ Detoxification Services for Substance Abuse Treatment (ICD-10-PCS; principal; 2024-12-07)
DX: F10.230 Alcohol dependence with withdrawal, uncomplicated (principal); I10 Essential (primary) hypertension; E78.5 Hyperlipidemia, unspecified; N40.0 Benign prostatic hyperplasia without lower urinary tract symptoms; M48.00 Spinal stenosis, site unspecified; F41.8 Other specified anxiety disorders
CPT/HCPCS: 36415; 80053; 80305; 80307; 85027; 86780; 93005; 93010